=== PATIENT | female | born 1975 | race Hispanic/Latino ===

== ENCOUNTER → 2025-11-21 | Outpatient (CLI) | payer BC ==
--- NOTE | 2025-11-21 20:34 | HMCIMG ---
STUDY: X-RAY OF THE RIGHT KNEE, 3 VIEWS HISTORY: Right knee pain, unspecified chronicity. TECHNIQUE: AP, lateral, and oblique views of the right knee are submitted for interpretation. COMPARISON: None provided. FINDINGS: Bones and joints: Right knee demonstrates normal bone mineralization and alignment without acute fracture or dislocation. Joint spaces are preserved without definite osteophyte formation, subarticular sclerosis, or bony deformity. No radiographic evidence of osteonecrosis or aggressive osseous lesion is identified. Soft tissues: No focal soft tissue swelling or gas is seen. No radiopaque foreign body or soft tissue calcification is identified. No definite suprapatellar joint effusion is appreciated. IMPRESSION: * No acute osseous abnormality of the right knee. * No definite radiographic explanation for right knee pain identified. /[place]
== END | disposition home or self-care (01) ==
LOC: RAH 15:29
PROVIDERS: ATTEND Internal Medicine
DX: M25.761 Osteophyte, right knee (principal); M25.561 Pain in right knee
CPT/HCPCS: 73562